=== PATIENT | male | born 1985 | race African-American/Black ===

== ENCOUNTER → 2017-01-23 13:29 | Outpatient (CLI) | payer MEDICARE | END | disposition home or self-care (01) | LOC: D.MRI 13:29 | DX: M54.5 Low back pain (principal) ==

== ENCOUNTER → 2017-10-17 11:05 | Outpatient (CLI) | payer MEDICARE | END | disposition home or self-care (01) | LOC: D.MRI 11:05 | DX: M54.5 Low back pain (principal) ==